=== PATIENT | male | born 1985 ===

== ENCOUNTER 2022-03-11 12:33 | Emergency (ER) | payer OTHER ==
[~2022-03-11] VITALS: Ht 177.8 cm; Wt 113.4 kg
[2022-03-11] MEDS ORDERED: SKELAGESIC PO (17:40)
[2022-03-11] MEDS ORDERED: ORPHENADRINE C100 MG PO (17:40)
== END 2022-03-11 17:49 ==
LOC: ER 12:33
DX: D17.1 Benign lipomatous neoplasm of skin and subcutaneous tissue of trunk (principal); R19.00 Intra-abdominal and pelvic swelling, mass and lump, unspecified site

== ENCOUNTER 2022-11-26 12:08 | Emergency (ER) | payer OTHER ==
[~2022-11-26] VITALS: Ht 177.8 cm; Wt 113.4 kg
[~2022-11-26 12:08] MED LIST: ORPHENADRINE C100 MG PO; SKELAGESIC PO
[2022-11-26] MEDS ORDERED: XARELTO20 MG (12:28)
== END 2022-11-26 18:16 | disposition home or self-care (01) ==
LOC: ER 12:08
DX: R10.9 Unspecified abdominal pain (principal); Z86.711 Personal history of pulmonary embolism; I12.9 Hypertensive chronic kidney disease with stage 1 through stage 4 chronic kidney disease, or unspecified chronic kidney disease; N18.9 Chronic kidney disease, unspecified